=== PATIENT | male | born 1970 | race Caucasian/White ===

== ENCOUNTER 2020-04-29 16:20 | Emergency (ER) | payer BC ==
[2020-04-29] MEDS ORDERED: LIDOCAINE 1% W/ EPINEPHRINE 20 ML VIAL INJ ONE (16:30)
[2020-04-29 16:38] VITALS: O2SAT 99
--- NOTE | 2020-04-29 16:50 | ED.PDOC ---
History of Present Illness - General Chief Complaint: Upper Extremity Injury Stated Complaint: fish hook in left hand Time Seen by Provider: 04/29/20 16:47 Source: patient Exam Limitations: no limitations - History of Present Illness Initial Comments: 49 yo M with type one DM who presents for fish hook in his L hand. States it was a clean hook and he went to grab something, not knowing it was there, it went into his L palm. Unknown last tetanus. Allergies/Adverse Reactions: Allergies NO KNOWN ALLERGY Allergy (Verified 04/29/20 16:38) Home Medications: Ambulatory Orders Human Insulin Aspart [Novolog] See Protocol SUBCU ACHS #1 vial 04/24/16 Cephalexin Monohydrate [Keflex] 500 mg PO QID #40 cap 04/29/20 Review of Systems - Review of Systems Musculoskeletal: States: other - Fish hook L hand. Denies: joint pain, joint swelling Neurological: Denies: numbness, weakness Past Medical History (General) - Patient Medical History Hx Seizures: No Hx Stroke: No Hx Dementia: No Hx Asthma: No Hx of COPD: No Hx Cardiac Disorders: No Hx Congestive Heart Failure: No Hx Pacemaker: No Hx Hypertension: No Hx Thyroid Disease: Yes Hx Diabetes: Yes Hx Gastroesophageal Reflux: No Hx Renal Disease: No Hx Cancer: No Hx of HIV: No Hx Hepatitis C: No Hx MRSA: No Surgical History: no surgical history - Vaccination History Hx Tetanus, Diphtheria Vaccination: No Hx Influenza Vaccination: No Hx Pneumococcal Vaccination: No Immunizations Up to Date: No - Social History Hx Tobacco Use: Yes - quit age 26 yrs/dips now Hx Alcohol Use: Yes - occ Hx Substance Use: No Hx Depression: No Family Medical History - Family History Mother Family History: No Known Physical Exam - Physical Exam General Appearance: Alert, Comfortable, No apparent distress, Well Developed, Well Groomed, Well Nourished Neck: full range of motion, supple Respiratory: no respiratory distress, no accessory muscle use Cardiovascular/Chest: normal peripheral pulses, regular rate, rhythm Peripheral Pulses: radial,right: 2+, radial,left: 2+ Extremity: normal range of motion, non-tender, other - Fish hook to thenar eminence of L hand. FROM, no deformity, no bony TTP, tendon exam intact. 2+ pulses, cap refill <2sec, NVID. Neurologic: no motor/sensory deficits, alert, normal mood/affect, oriented x 3 Skin Exam: normal color, warm/dry Progress - Progress Progress: 04/29/20 16:49 I have explained and reviewed all results with the pt. I explained that emergent conditions may arise and to return to the ER for new, worsening, or any persistent conditions. I've explained the importance of f/u for recheck. All questions and concerns addressed at this time. Pt understands and agrees with plan. Pt well appearing, NAD, is stable for discharge. Roz Logan MD Emergency Medicine Physician Billing Number [id number] Procedures - Foreign Body Removal Foreign Body Removal: fish hook Foreign Body Physician Comment:: prepped draped in sterile fashion, lido w/ epi, #11 blade, complete removal Departure - Departure Clinical Impression: Fish hook injury of left hand Qualifiers: Encounter type: initial encounter Qualified Code(s): S69.92XA - Unspecified injury of left wrist, hand and finger(s), initial encounter Time of Disposition: 16:47 Disposition: Discharge to Home or Self Care Health Concerns: condition: stable Departure Forms: ED Discharge - Pt. Copy, Patient Portal Self Enrollment Instructions: Wound Care (DC) Referrals: ROSE MARY HARRIS [Primary Care Provider] - 1-5 Days Prescriptions: Cephalexin Monohydrate [Keflex] 500 mg PO QID #40 cap Home Medications: Ambulatory Orders Human Insulin Aspart [Novolog] See Protocol SUBCU ACHS #1 vial 04/24/16 Cephalexin Monohydrate [Keflex] 500 mg PO QID #40 cap 04/29/20
[2020-04-29] MEDS: TETANUS,DIPHTHERIA,PERTUSSIS 1 EA SYG IM ONE (17:01)
[2020-04-29 17:23] VITALS: BP 142/82; TEMP 98.4
== END 2020-04-29 17:20 | disposition home or self-care (01) ==
LOC: ER 16:20
DX: S61.442A Puncture wound with foreign body of left hand, initial encounter (principal); E11.9 Type 2 diabetes mellitus without complications; F17.220 Nicotine dependence, chewing tobacco, uncomplicated; Z79.4 Long term (current) use of insulin; W26.8XXA Contact with other sharp object(s), not elsewhere classified, initial encounter; Y92.9 Unspecified place or not applicable